=== PATIENT | male | born 1925 | race Caucasian/White ===

== ENCOUNTER 2016-09-16 16:09 | Outpatient (CLI) | payer OTHER ==
--- NOTE | 2016-09-16 18:21 | DIAGNOSTIC IMAGING REPORT ---
PROCEDURE: US VENOUS - RIGHT EXT INDICATION: Right leg swelling after injury. TECHNIQUE: Color Doppler duplex imaging of the deep and superficial venous system without and with compression. COMPARISON: None. FINDINGS: There is a 5.7 x 5.0 x 1.9 cm hypoechoic area in the medial proximal calf consistent with hematoma. This is associated with compression of the greater saphenous vein, although no definite evidence of thrombosis. A second a site of injury in the distal medial calf appears normal. Deep and superficial venous system of the right lower extremity is within normal limits. There is no evidence of deep vein thrombosis or superficial thrombophlebitis. IMPRESSION: 1. 5.7 x 5.0 1.9 cm hypoechoic area in the proximal medial calf consistent with hematoma. 2. Otherwise negative venous ultrasound of the right lower extremity. No evidence of deep vein thrombosis or superficial thrombophlebitis. 3. Findings discussed with the patient and called to LISETH Belle.
== END 2016-09-16 23:00 ==
LOC: US SRH 16:09
DX: M79.89 Other specified soft tissue disorders (principal)